=== PATIENT | male | born 1985 | race Caucasian/White ===

== ENCOUNTER 2019-10-09 21:02 | Emergency (ER) | payer SELFPAY ==
--- NOTE | 2019-10-09 22:31 | ER ---
Nurse's Notes [facility] Name: Kameron Orlando Age: 34 yrs Sex: Male : 1985 Arrival Date: 10/09/2019 Time: 21:05 Bed 14 Private MD: Diagnosis: Displaced fracture of base of fifth metacarpal bone, right hand;Displaced fracture of shaft of fourth metacarpal bone, right hand Presentation: 10/08 21:16 Chief complaint: Patient states: Punched a wall 2 days ago. Now, R hand is swollen. ca1 Reports pain. Coronavirus screen: Proceed with normal triage. Patient denies a cough. Patient denies shortness of breath or difficulty breathing. Patient denies measured and/or subjective temperature greater than 100.4F prior to today's visit. Patient denies travel on a cruise ship or to a country the [facility] currently lists as an affected area. Patient denies contact with known and/or suspected case of COVID-19. Ebola Screen: Patient negative for fever greater than or equal to 101.5 degrees Fahrenheit, and additional compatible Ebola Virus Disease symptoms Patient denies exposure to infectious person. Patient denies travel to an Ebola-affected area in the 21 days before illness onset. No symptoms or risks identified at this time. Initial Sepsis Screen: Does the patient meet any 2 criteria? No. Patient's initial sepsis screen is negative. Does the patient have a suspected source of infection? No. Patient's initial sepsis screen is negative. Risk Assessment: Do you want to hurt yourself or someone else? Patient reports no desire to harm self or others. Onset of symptoms was October 09, 2019. 21:16 Method Of Arrival: Ambulatory ca1 21:16 Acuity: NITO 4 ca1 Historical: - Allergies: 21:18 No Known Allergies; ca1 - Home Meds: 21:18 None [Active]; ca1 - PMHx: 21:18 None; ca1 - PSHx: 21:18 None; ca1 - Immunization history:: Adult Immunizations up to date. - Social history:: Smoking status: Patient reports the use of cigarette tobacco products, smokes one-half pack cigarettes per day. Vital Signs: 21:16 BP 116 / 64; Pulse 101; Resp 16 S; Temp 99(O); Pulse Ox 95% on R/A; Weight 78.02 kg ca1 (R); Height 5 ft. 11 in. (180.34 cm) (R); Pain 10/10; 21:16 Body Mass Index 23.99 (78.02 kg, 180.34 cm) ca1 ED Course: 21:05 Patient arrived in ED. cf2 21:18 Triage completed. ca1 21:18 Arm band placed on right wrist. ca1 21:56 Phillip Gupta PA is PHCP. cp 21:56 Frank Macias MD is Attending Physician. cp 22:00 XRAY Hand RIGHT 3 View In Process Unspecified. EDMS 22:28 Manny Augustin MD is Referral Physician. cp 22:51 Iveth Sepulveda, RN is Primary Nurse. ls4 22:55 No provider procedures requiring assistance completed. Patient did not have IV access ls4 during this emergency room visit. Orthoglass splint: Ulnar gutter/Boxer splint applied on right forearm. Administered Medications: 22:40 Drug: Hydrocodone-Acetaminophen (7.5 mg-325 mg) 1 tabs Route: PO; ls4 22:40 Drug: Ibuprofen 800 mg Route: PO; ls4 Outcome: 22:30 Discharge ordered by MD. cp 23:29 Patient left the ED. ls4 Signatures: Dispatcher [employer] EDWV Phillip Gupta PA PA cp Iveth Sepulveda RN RN ls4 Paula Reis RN RN ca1 Vahid Calzada cf2
--- NOTE | 2019-10-09 22:31 | EDPHYS ---
Physician Documentation [facility] Name: Kameron Orlando Age: 34 yrs Sex: Male : 1985 Arrival Date: 10/09/2019 Time: 21:05 Bed 14 Private MD: ED Physician Frank Macias HPI: 10/08 22:15 This 34 yrs old Male presents to ER via Ambulatory with complaints of Other, cp Hand Injury, Hand Pain, Hand Swelling. 22:15 The patient or guardian reports deformity, injury, swelling, tenderness. The complaints cp affect the right hand diffusely. Context: resulted from using own fist to strike, a wall. 22:15 Onset: The symptoms/episode began/occurred 2 day(s) ago. Associated signs and symptoms: cp Pertinent negatives: cyanosis distally, decreased sensation distally. Historical: - Allergies: 21:18 No Known Allergies; ca1 - Home Meds: 21:18 None [Active]; ca1 - PMHx: 21:18 None; ca1 - PSHx: 21:18 None; ca1 - Immunization history:: Adult Immunizations up to date. - Social history:: Smoking status: Patient reports the use of cigarette tobacco products, smokes one-half pack cigarettes per day. ROS: 22:20 MS/extremity: Positive for injury or acute deformity, pain, swelling, tenderness, cp Negative for paresthesias. 22:20 Constitutional: Negative for body aches, chills, fever. cp 22:20 Skin: Negative for cellulitis, rash. 22:20 All other systems are negative. Exam: 22:25 Constitutional: The patient appears in no acute distress, alert, awake, well developed, cp well nourished. 22:25 Musculoskeletal/extremity: Extremities: grossly normal except: noted in the right hand: cp pain, swelling, tenderness, Perfusion: the extremity is normally perfused throughout, Sensation intact. 22:25 Skin: intact and no open wounds. Vital Signs: 21:16 BP 116 / 64; Pulse 101; Resp 16 S; Temp 99(O); Pulse Ox 95% on R/A; Weight 78.02 kg ca1 (R); Height 5 ft. 11 in. (180.34 cm) (R); Pain 10/10; 21:16 Body Mass Index 23.99 (78.02 kg, 180.34 cm) ca1 Procedures: 23:25 Splinting: Splint applied to right hand using Orthoglass splint, ulna gutter type. cp applied by tech. Examined by me, post splint application: neurovascular intact, Patient tolerated well. MDM: 21:57 Patient medically screened. cp 22:25 Differential diagnosis: dislocation, open fracture, closed fracture, contusion. cp 22:30 Data reviewed: vital signs, nurses notes, radiologic studies, plain films. cp 10/08 21:19 Order name: XRAY Hand RIGHT 3 View ca1 10/08 22:26 Order name: Splint - Ulnar Gutter; Complete Time: 22:55 cp Administered Medications: 22:40 Drug: Hydrocodone-Acetaminophen (7.5 mg-325 mg) 1 tabs Route: PO; ls4 22:40 Drug: Ibuprofen 800 mg Route: PO; ls4 Disposition: 23:30 Chart complete. cp Disposition: 10/09/19 22:30 Discharged to Home. Impression: Displaced fracture of base of fifth metacarpal bone, right hand, Displaced fracture of shaft of fourth metacarpal bone, right hand. - Condition is Stable. - Discharge Instructions: Metacarpal Fracture. - Prescriptions for Ibuprofen 800 mg Oral Tablet - take 1 tablet by ORAL route every 8 hours As needed take with food; 30 tablet. Tylenol- Codeine #3 300-30 mg Oral Tablet - take 2 tablets by ORAL route every 6 hours As needed; 20 tablet. - Medication Reconciliation Form, Thank You Letter, Antibiotic Education, Prescription Opioid Use form. - Follow up: Manny Augustin MD; When: 2 - 3 days; Reason: Recheck today's complaints. - Problem is new. - Symptoms have improved. Addendum: 10/12/2019 07:10 Co-signature as Attending Physician, Frank Macias MD I agree with the assessment and t w4 plan of care. Signatures: Dispatcher [employer] EDMS Phillip Gupta PA PA cp Frank Macias MD MD tw4 Iveth Sepulveda, TULIO RN ls4 Paula Reis RN RN ca1 Corrections: (The following items were deleted from the chart) 10/08 23:29 22:30 10/09/2019 22:30 Discharged to Home. Impression: Displaced fracture of base of ls4 fifth metacarpal bone, right hand; Displaced fracture of shaft of fourth metacarpal bone, right hand. Condition is Stable. Forms are Medication Reconciliation Form, Thank You Letter, Antibiotic Education, Prescription Opioid Use. Follow up: Manny Augustin; When: 2 - 3 days; Reason: Recheck today's complaints. Problem is new. Symptoms have improved. cp
[2019-10-09] MEDS ORDERED: IBUPROFEN 400 MG TAB ONE (22:46)
[2019-10-09] MEDS ORDERED: HYDROCODONE/APAP 7.5/325 MG TAB ONE (22:46)
[2019-10-09 23:38] VITALS: BP 116/64; TEMP 99; O2SAT 95
--- NOTE | 2019-10-10 08:47 | RAD REPORT ---
EXAM DESCRIPTION: RAD - Hand Right 3 View - 10/09/2019 9:58 pm CLINICAL HISTORY: SWELLING, blunt force trauma, hand pain COMPARISON: No comparisons FINDINGS: Oblique fracture is present through the midshaft of the fourth metacarpal. There is dorsal displacement 1 full shaft with the distal fracture fragment which is also angulated approximately 15 degrees. Comminuted fracture involves the base of the fifth metacarpal. There is medial and lateral displacement of the base fracture fragments. Approximately 15 degrees ventral angulation of the metac arpal shaft. Prominent soft tissue swelling surrounds the hand. No foreign body. IMPRESSION: Midshaft right fourth metacarpal fracture with dorsal displacement and angulation of the distal fracture fragment. Comminuted fifth metacarpal fracture. The base of the fifth metacarpal has fraction is multiple small fracture fragments with medial and lateral displacement.
== END 2019-10-09 23:29 | disposition home or self-care (01) ==
LOC: ER 21:02
PROC: 2W3CX1Z Immobilization of Right Lower Arm using Splint (ICD-10-PCS; principal; 2019-10-09)
DX: S62.316A Displaced fracture of base of fifth metacarpal bone, right hand, initial encounter for closed fracture (principal); S62.324A Displaced fracture of shaft of fourth metacarpal bone, right hand, initial encounter for closed fracture; W22.8XXA Striking against or struck by other objects, initial encounter; Y93.9 Activity, unspecified; Y92.9 Unspecified place or not applicable; F17.210 Nicotine dependence, cigarettes, uncomplicated
CPT/HCPCS: 99283